=== PATIENT | female | born 1985 | race Caucasian/White ===

== ENCOUNTER 2017-06-21 13:10 | Observation (INO) | payer OTHER ==
[~2017-06-21] VITALS: Ht 163 cm; Wt 79.8 kg
[2017-11-21] MEDS ORDERED: RINGERS SOLUTION,LACTATED 1,000 ML IV PRN (10:19)
[2017-11-21] MEDS ORDERED: RINGERS SOLUTION,LACTATED 1,000 ML IV SCH (10:19)
[2017-11-21] MEDS ORDERED: OXYTOCIN 30 UNITS/LACT RINGERS 500 ML IV ONE (10:23)
[2017-11-21] MEDS ORDERED: METOCLOPRAMIDE HCL 5 MG/ML 2 ML VIAL IVP PRN (10:30)
[2017-11-21] MEDS ORDERED: LIDOCAINE HCL/PF 1% 30 ML VIAL INJ PRN (10:30)
[2017-11-21] MEDS ORDERED: CITRIC ACID/SODIUM CITRATE 30 ML SOLUTION UDCUP PO PRN (10:30)
[2017-11-21] MEDS ORDERED: OXYGEN THERAPY IH SCH (10:30)
[2017-11-21] MEDS ORDERED: FentaNYL CITRATE-PF 100 MCG/2 ML VIAL IVP PRN (10:30)
[2017-11-21] MEDS ORDERED: METHYLERGONOVINE MALEATE 0.2 MG/ML VIAL IM PRN (10:30)
[2017-11-21 11:11] VITALS: BP 110/83
[2017-11-21] MEDS ORDERED: PNV1TABL54 PO (11:14)
[2017-11-21] MEDS ORDERED: EUTIROX PO (11:14)
== END 2017-11-21 13:05 | disposition home or self-care (01) ==
LOC: 4S 13:10 → UNDOADMOB 13:10 → 4S 11-21 10:15 → INTOOBSV 11-21 10:15 → OBSVTOIN 11-21 10:15
PROVIDERS: ADMIT Obstetrics & Gynecology; ATTEND Obstetrics & Gynecology
DX: O48.0 Post-term pregnancy (principal); O99.283 Endocrine, nutritional and metabolic diseases complicating pregnancy, third trimester; E03.8 Other specified hypothyroidism; Z3A.40 40 weeks gestation of pregnancy
CPT/HCPCS: 59025; G0378; J7120

== ENCOUNTER 2017-11-23 18:57 | Inpatient (IN) | payer OTHER ==
[~2017-11-23] VITALS: Ht 163 cm; Wt 81.3 kg
[~2017-11-23 18:57] MED LIST: EUTIROX PO; PNV1TABL54 PO
[2017-11-23 19:41] VITALS: BP 109/66
[2017-11-23] MEDS ORDERED: FOLIC ACID PO (19:50)
[2017-11-23] MEDS ORDERED: RINGERS SOLUTION,LACTATED 1,000 ML IV PRN (21:16)
[2017-11-23] MEDS ORDERED: CITRIC ACID/SODIUM CITRATE 30 ML SOLUTION UDCUP PO PRN (21:30)
[2017-11-23] MEDS ORDERED: METOCLOPRAMIDE HCL 5 MG/ML 2 ML VIAL IVP PRN (21:30)
[2017-11-23] MEDS: RINGERS SOLUTION,LACTATED 1,000 ML IV SCH (21:43)
[2017-11-23 21:57] LABS: HEMATOCRIT 38.4 % (36-46); HEMOGLOBIN 13.4 g/dL (12.0-16.0); MEAN CORPUSCULAR HEMOGLOBIN 32.3 pg (26.0-34.0); MEAN CORPUSCULAR HGB CONC 34.9 G/dL (31.0-37.0); MEAN CORPUSCULAR VOLUME 93 fL (80-100); PLATELET COUNT (AUTO)-OB 228 K/uL (150-450); RED BLOOD CELL COUNT(AUTO) 4.15 MIL/uL (4.00-5.20)
[2017-11-23 23:09] LABS: BAND NEUTROPHILS % (MANUAL) 4 % (0-5); EOSINOPHILS % (MANUAL) 1 % (1-6); LYMPHOCYTES % (MANUAL) 17 % (22-44); MONOCYTES % (MANUAL) 4 % (2-9); SEGMENTED NEUTROPHILS % 74 % (40-70)
[2017-11-23 23:10] LABS: PLATELET MORPHOLOGY COMMENT LARGE PLTS PRESENT
[2017-11-24] MEDS ORDERED: OXYTOCIN 30 UNITS/LACT RINGERS 500 ML IV PRN (04:15)
[2017-11-24] MEDS ORDERED: RINGERS SOLUTION,LACTATED 1,000 ML IV PRN (04:18)
[2017-11-24] MEDS ORDERED: OXYTOCIN 30 UNITS/LACT RINGERS 500 ML IV ONE ×3 (04:18→10:44)
[2017-11-24] MEDS ORDERED: AMPICILLIN SODIUM 2 GM/NS 100 ML IV ONE (04:30)
[2017-11-24] MEDS: RINGERS SOLUTION,LACTATED 1,000 ML IV SCH ×2 (04:50→09:31)
[2017-11-24] MEDS: FentaNYL CITRATE-PF 100 MCG/2 ML VIAL IVP PRN ×4 (05:07→06:18)
[2017-11-24] MEDS ORDERED: LIDOCAINE HCL/PF 2% 5 ML VIAL ONE (06:30)
[2017-11-24] MEDS ORDERED: ROPIVACAINE HCL/PF 0.2% 100 ML ED ONE (06:30)
[2017-11-24] MEDS ORDERED: ROPIVACAINE HCL/PF 0.2% 100 ML ED PRN (07:01)
[2017-11-24] MEDS ORDERED: DiphenhydrAMINE HCL 50 MG/ML VIAL IVP PRN (07:15)
[2017-11-24] MEDS ORDERED: ONDANSETRON HCL 4 MG/2 ML VIAL IVP PRN (07:15)
[2017-11-24] MEDS ORDERED: NALBUPHINE HCL 10 MG/ML VIAL IVP PRN (07:15)
[2017-11-24] MEDS ORDERED: OXYGEN THERAPY IH SCH (08:00)
[2017-11-24] MEDS ORDERED: AMPICILLIN SODIUM 1 GM/NS 50 ML IV SCH (08:30)
[2017-11-24] MEDS ORDERED: LIDOCAINE HCL/PF 1% 30 ML VIAL INJ PRN (10:45)
[2017-11-24] MEDS ORDERED: LANOLIN 7 GM OINTMENT TP PRN (10:45)
[2017-11-24] MEDS ORDERED: GLYCERIN/WITCH HAZEL LEAF 40 PADS JAR TP PRN (10:45)
[2017-11-24] MEDS ORDERED: BENZOCAINE 20%/MENTHOL 56 GM SPRAY CANISTER TP PRN (10:45)
[2017-11-24] MEDS: IBUPROFEN 800 MG TABLET PO PRN ×2 (11:51→18:39)
[2017-11-24] MEDS: OxyCODONE HCL/ACETAMINOPHEN 5-325 MG TABLET PO PRN ×2 (14:36→21:34)
[2017-11-24] MEDS: MAGNESIUM HYDROXIDE SUSPENSION 30 ML UDCUP PO PRN (21:35)
[2017-11-25] MEDS: IBUPROFEN 800 MG TABLET PO PRN (04:52)
[2017-11-25] MEDS: OxyCODONE HCL/ACETAMINOPHEN 5-325 MG TABLET PO PRN ×2 (05:16→08:01)
[2017-11-25 06:10] LABS: BASOPHILS % (AUTO) 0.2 % (0.0-2.0); EOSINOPHILS % (AUTO) 0.5 % (1.0-6.0); HEMATOCRIT 32.8 % (36-46); HEMOGLOBIN 11.1 g/dL (12.0-16.0); LYMPHOCYTES # (AUTO) 1.7 K/uL (1.0-4.8); MEAN CORPUSCULAR HEMOGLOBIN 31.6 pg (26.0-34.0); MEAN CORPUSCULAR HGB CONC 33.8 G/dL (31.0-37.0); MEAN CORPUSCULAR VOLUME 93 fL (80-100); MONOCYTES # (AUTO) 0.5 K/uL (0.1-1.0); NEUTROPHILS # (AUTO) 10.9 K/uL (1.8-7.7); NEUTROPHILS % (AUTO) 82.3 % (40.0-70.0); PLATELET COUNT (AUTO)-OB 201 K/uL (150-450); RED BLOOD CELL COUNT(AUTO) 3.52 MIL/uL (4.00-5.20); RED CELL DISTRIBUTION WIDTH 13.8 % (11.5-14.5)
[2017-11-25] MEDS ORDERED: LEVOTHYROXINE SODIUM 50 MCG TABLET PO SCH (06:30)
[2017-11-25] MEDS: MAGNESIUM HYDROXIDE SUSPENSION 30 ML UDCUP PO PRN (08:00)
[2017-11-25] MEDS ORDERED: IBUP-2071 PO (11:05)
[2017-11-25] MEDS ORDERED: FOLI1 PO (11:13)
[2017-11-25] MEDS ORDERED: SENNA/DOCUSATE SODIUM 187-50 MG TABLET PO ONE ×2 (11:15→11:30)
== END 2017-11-25 12:25 | disposition home or self-care (01) | DRG 775 ==
LOC: 4S 18:57 → PREOBSVTOIN 12-11 20:09
PROVIDERS: ADMIT Obstetrics & Gynecology; ATTEND Obstetrics & Gynecology
PROC: 10D07Z6 Extraction of Products of Conception, Vacuum, Via Natural or Artificial Opening (ICD-10-PCS; principal; 2017-11-24)
PROC: 0KQM0ZZ Repair Perineum Muscle, Open Approach (ICD-10-PCS; 2017-11-24)
PROC: 3E0R3BZ Introduction of Anesthetic Agent into Spinal Canal, Percutaneous Approach (ICD-10-PCS; 2017-11-24)
PROC: 00HU33Z Insertion of Infusion Device into Spinal Canal, Percutaneous Approach (ICD-10-PCS; 2017-11-24)
DX: O70.1 Second degree perineal laceration during delivery (principal); Z37.0 Single live birth; O66.5 Attempted application of vacuum extractor and forceps; Z3A.40 40 weeks gestation of pregnancy
CPT/HCPCS: 86850; 86900; 86901; 89060; J0290; J2590; J2795; J3010; J3490; J7120

== ENCOUNTER 2019-08-21 18:09 | Observation (INO) | payer OTHER ==
[~2019-08-21 18:09] MED LIST changes: +FOLI-130 PO; +IBUP-2071 PO
[2019-08-22] MEDS ORDERED: LEVO50 PO (23:06)
[2019-08-22] MEDS ORDERED: PREN-217 PO (23:07)
== END 2019-08-21 18:30 | disposition home or self-care (01) ==
LOC: 4S 18:09
PROVIDERS: ADMIT Obstetrics & Gynecology; ATTEND Obstetrics & Gynecology
DX: Z03.818 Encounter for observation for suspected exposure to other biological agents ruled out (principal); O26.893 Other specified pregnancy related conditions, third trimester; Z3A.36 36 weeks gestation of pregnancy
CPT/HCPCS: 87635; G0378

== ENCOUNTER 2019-08-22 09:50 | Inpatient (IN) | payer OTHER ==
[~2019-08-22] VITALS: Ht 165.1 cm; Wt 86.6 kg
[~2019-08-22 09:50] MED LIST changes: -FOLI-130 PO; +FOLI1 PO
[2019-08-22] MEDS ORDERED: OXYTOCIN 30 UNITS/LACT RINGERS 500 ML IV ONE ×2 (09:52→13:28)
[2019-08-22] MEDS ORDERED: RINGERS SOLUTION,LACTATED 1,000 ML IV PRN (09:52)
[2019-08-22] MEDS ORDERED: RINGERS SOLUTION,LACTATED 1,000 ML IV SCH (09:52)
[2019-08-22] MEDS ORDERED: CITRIC ACID/SODIUM CITRATE 30 ML SOLUTION UDCUP PO PRN (10:00)
[2019-08-22] MEDS ORDERED: TERBUTALINE SULFATE 1 MG/ML VIAL SQ PRN (10:00)
[2019-08-22] MEDS ORDERED: OXYGEN THERAPY IH SCH (10:00)
[2019-08-22] MEDS ORDERED: METHYLERGONOVINE MALEATE 0.2 MG/ML VIAL IM PRN (10:00)
[2019-08-22] MEDS ORDERED: LIDOCAINE/PF 1% 30 ML VIAL INJ PRN ×2 (10:00→13:30)
[2019-08-22] MEDS ORDERED: FentaNYL CITRATE-PF 100 MCG/2 ML VIAL IVP PRN (10:00)
[2019-08-22] MEDS ORDERED: METOCLOPRAMIDE HCL 5 MG/ML 2 ML VIAL IVP PRN (10:00)
[2019-08-22] MEDS ORDERED: OXYTOCIN 30 UNITS/LACT RINGERS 500 ML IV PRN (10:44)
[2019-08-22] MEDS ORDERED: AMPICILLIN SODIUM 2 GM/NS 100 ML IV ONE (10:45)
[2019-08-22 10:46] LABS: BASOPHILS % (AUTO) 0.4 % (0.0-2.0); EOSINOPHILS % (AUTO) 0.4 % (1.0-6.0); HEMATOCRIT 38.3 % (36-46); LYMPHOCYTES # (AUTO) 1.5 K/uL (1.0-4.8); LYMPHOCYTES % (AUTO) 16.1 % (22.0-44.0); MEAN CORPUSCULAR HEMOGLOBIN 31.4 pg (26.0-34.0); MEAN CORPUSCULAR HGB CONC 34.1 G/dL (31.0-37.0); MEAN CORPUSCULAR VOLUME 92 fL (80-100); MONOCYTES # (AUTO) 0.5 K/uL (0.1-1.0); MONOCYTES % (AUTO) 5.1 % (2.0-9.0); NEUTROPHILS # (AUTO) 7.2 K/uL (1.8-7.7); PLATELET COUNT (AUTO) 207 K/uL (150-450); RED BLOOD CELL COUNT(AUTO) 4.15 MIL/uL (4.00-5.20); RED CELL DISTRIBUTION WIDTH 13.7 % (11.5-14.5)
[2019-08-22 11:50] VITALS: BP 118/74
[2019-08-22] MEDS ORDERED: INFLUENZA VIRUS VACCINE QVS 2019-20 (3YR+)/PF 60 MCG/0.5 ML SYRINGE IM ONE (12:00)
[2019-08-22] MEDS ORDERED: ROPIVACAINE HCL/PF 0.2% 100 ML ED ONE (12:56)
[2019-08-22] MEDS ORDERED: LIDOCAINE/PF 2% 5 ML VIAL ONE (12:56)
[2019-08-22] MEDS ORDERED: DiphenhydrAMINE HCL 50 MG/ML VIAL IVP PRN (13:15)
[2019-08-22] MEDS ORDERED: NALBUPHINE HCL 10 MG/ML VIAL IVP PRN (13:15)
[2019-08-22] MEDS ORDERED: ROPIVACAINE HCL/PF 0.2% 100 ML ED PRN (13:15)
[2019-08-22] MEDS ORDERED: ONDANSETRON HCL 4 MG/2 ML VIAL IVP PRN (13:15)
[2019-08-22] MEDS ORDERED: LANOLIN 7 GM OINTMENT TP PRN (13:30)
[2019-08-22] MEDS ORDERED: MAGNESIUM HYDROXIDE SUSPENSION 30 ML UDCUP PO PRN (13:30)
[2019-08-22] MEDS ORDERED: OxyCODONE HCL/ACETAMINOPHEN 5-325 MG TABLET PO PRN ×2 (13:30)
[2019-08-22] MEDS ORDERED: IBUPROFEN 800 MG TABLET PO PRN (13:30)
[2019-08-22] MEDS ORDERED: BENZOCAINE 20%/MENTHOL 56 GM SPRAY CANISTER TP PRN (13:30)
[2019-08-22] MEDS ORDERED: GLYCERIN/WITCH HAZEL LEAF 40 PADS JAR TP PRN (13:30)
[2019-08-22] MEDS ORDERED: AMPICILLIN SODIUM 1 GM/NS 50 ML IV SCH (14:45)
[2019-08-22] MEDS ORDERED: MINERAL OIL 30 ML UDCUP VG ONE (16:30)
[2019-08-22] MEDS ORDERED: LEVO50 PO (23:06)
[2019-08-22] MEDS ORDERED: PREN-217 PO (23:07)
[2019-08-23] MEDS ORDERED: LEVOTHYROXINE SODIUM 50 MCG TABLET PO SCH (06:30)
[2019-08-23 08:36] LABS: BASOPHILS % (AUTO) 0.3 % (0.0-2.0); EOSINOPHILS % (AUTO) 0.4 % (1.0-6.0); HEMATOCRIT 34.3 % (36-46); HEMOGLOBIN 11.5 g/dL (12.0-16.0); LYMPHOCYTES # (AUTO) 1.9 K/uL (1.0-4.8); LYMPHOCYTES % (AUTO) 14.8 % (22.0-44.0); MEAN CORPUSCULAR HEMOGLOBIN 31.5 pg (26.0-34.0); MEAN CORPUSCULAR HGB CONC 33.6 G/dL (31.0-37.0); MEAN CORPUSCULAR VOLUME 94 fL (80-100); MONOCYTES # (AUTO) 0.7 K/uL (0.1-1.0); MONOCYTES % (AUTO) 5.5 % (2.0-9.0); NEUTROPHILS # (AUTO) 10.1 K/uL (1.8-7.7); PLATELET COUNT (AUTO)-OB 166 K/uL (150-450); RED BLOOD CELL COUNT(AUTO) 3.66 MIL/uL (4.00-5.20); RED CELL DISTRIBUTION WIDTH 13.5 % (11.5-14.5)
[2019-08-23] MEDS ORDERED: IBUP-2071 PO (09:38)
== END 2019-08-23 16:15 | disposition home or self-care (01) | DRG 807 ==
LOC: OBSVTOIN 09:50 → 4S 09:50
PROVIDERS: ADMIT Obstetrics & Gynecology; ATTEND Obstetrics & Gynecology
PROC: 10D07Z3 Extraction of Products of Conception, Low Forceps, Via Natural or Artificial Opening (ICD-10-PCS; principal; 2019-08-22)
PROC: 0KQM0ZZ Repair Perineum Muscle, Open Approach (ICD-10-PCS; 2019-08-22)
PROC: 3E0R3BZ Introduction of Anesthetic Agent into Spinal Canal, Percutaneous Approach (ICD-10-PCS; 2019-08-22)
PROC: 00HU33Z Insertion of Infusion Device into Spinal Canal, Percutaneous Approach (ICD-10-PCS; 2019-08-22)
PROC: 10907ZC Drainage of Amniotic Fluid, Therapeutic from Products of Conception, Via Natural or Artificial Opening (ICD-10-PCS; 2019-08-22)
DX: O99.824 Streptococcus B carrier state complicating childbirth (principal); O76 Abnormality in fetal heart rate and rhythm complicating labor and delivery; O70.1 Second degree perineal laceration during delivery; Z3A.39 39 weeks gestation of pregnancy; Z37.0 Single live birth
CPT/HCPCS: 86850; 86900; 86901; J0290; J2590; J2795; J3490; J7120